=== PATIENT | male | born 1995 | race Caucasian/White ===

== ENCOUNTER 2016-04-19 17:46 | Inpatient (IN) | payer MEDICAID, MEDICARE ==
[~2016-04-19] VITALS: Ht 193 cm; Wt 144.0 kg
[2016-04-19] VITALS (10 sets, daily range): BP systolic 101–118; BP diastolic 67–83; PULSE 122–134; RESP 24–28; TEMP 97.7–98.7; O2SAT 93–97
[~2016-04-19 17:46] MED LIST: ALBU0.08 NEB; ALBUAER3 INH; FLUTI44I INH; IPRA0.02 NEB; NEBUMIS6 INH; PRED20 PO; PULM90IN INH
[2016-04-19] MEDS ORDERED: SODIUM CHLORIDE 0.9% FLUSH 5 ML FLUSH IVF PRN (18:00)
[2016-04-19] MEDS ORDERED: methylPREDNISolone SOD SUCC 125 MG/2 ML VIAL IVP ONE (18:00)
[2016-04-19] MEDS: RESP: ALBUTEROL 2.5 MG/IPRATROPIUM 0.5 MG NEB (SCH) INH (18:06)
--- NOTE | 2016-04-19 18:07 | PD ---
HPI Chief Complaint: Respiratory Distress Time Seen by Provider: 17:54 Travel History International Travel<30 days: No Contact w/Intl Traveler<30days: No Traveled to known affect area: No History of Present Illness HPI This patient complains of shortness of breath. He has history of asthma and started wheezing this morning. He has run out of his albuterol nebulizer medication. He does not smoke. He's got a bit of runny nose and congestion but no fever or chest pain. Symptoms are severe upon presentation. He is laboring to breathe. Duration is one day. No alleviating factors. PFSH Past Medical History ADHD: No Anemia: Yes Arthritis: Yes Asthma: Yes Autoimmune Disease: No Anxiety: No Depression: Yes Cancer: No Cardiovascular Problems: Yes (PER MOM HAD HEART MURMUR WHILE IN HOSPITAL LAST YEAR) Diabetes: No Diminished Hearing: No Gastrointestinal Disorders: Yes Psychiatric: Yes (HX ASPERGERS, MOOD DISORDER) Respiratory: Yes (asthma) Immunizations Current: Yes (SCHOOL SHOTS UTD) Migraines: No Seizures: No Thyroid Disease: No Ulcer: No Past Surgical History Appendectomy: No Cholecystectomy: No Oral Surgery: Yes (T & A 2002) Tonsillectomy: Yes (ADNOIDS) Other Surgery: Yes (tonsillectomy and adenoidectomy age 7) Social History Alcohol Use: No Tobacco Use: No Substance Use: No Allergies-Medications (Allergen,Severity, Reaction): Coded Allergies: Cat Dander (Verified Allergy, Mild, 02/28/16) Smoke (Verified Allergy, Mild, 02/28/16) Reported Meds & Prescriptions Reported Meds & Active Scripts Active Ipratropium Neb (Ipratropium [place]) 0.5 Mg/2.5 Ml Amp 0.5 Mg NEB Q6HR NEB PRN Albuterol Neb (Albuterol Sulfate) 2.5 Mg/3 Ml Neb 2.5 Mg NEB Q4HR NEB PRN Proair Hfa 8.5 GM Inh (Albuterol Sulfate) 90 Mcg/Act Aer 1 Puff INH Q4H PRN 108 mcg/actuation Pulmicort Flexhaler (Budesonide Powder Inh) 90 Mcg/Act Inhp 90 Mcg INH Q12HR Review of Systems General / Constitutional: No: Fever Eyes: No: Visual changes HENT: Positive: Rhinorrhea, Congestion, No: Headaches Cardiovascular: Positive: Tachycardia, No: Chest Pain or Discomfort Respiratory: Positive: Cough, Shortness of Breath, Wheezing Gastrointestinal: No: Abdominal Pain Genitourinary: No: Dysuria Musculoskeletal: No: Pain Skin: No Rash Neurologic: No: Weakness Psychiatric: No: Depression Endocrine: No: Polydipsia Hematologic/Lymphatic: No: Easy Bruising Physical Exam Narrative GENERAL: Well-nourished, well-developed patient in respiratory distress. SKIN: Warm and dry. HEAD: Atraumatic. Normocephalic. EYES: Pupils equal and round. No scleral icterus. No injection or drainage. ENT: No nasal bleeding or discharge. Mucous membranes pink and moist. NECK: Trachea midline. No JVD. CARDIOVASCULAR: Regular rate and rhythm. No murmur appreciated. Tachycardic at 130s RESPIRATORY: Positive accessory muscle use. Diffuse expiratory wheezing. Breath sounds equal bilaterally. GASTROINTESTINAL: Abdomen soft, non-tender, nondistended. Hepatic and splenic margins not palpable. MUSCULOSKELETAL: No obvious deformities. No clubbing. No cyanosis. No edema. NEUROLOGICAL: Awake and alert. No obvious cranial nerve deficits. Motor grossly within normal limits. Normal speech. PSYCHIATRIC: Appropriate mood and affect; insight and judgment normal. Data Data Last Documented VS Vital Signs Date Time Temp Pulse Resp B/P Pulse Ox O2 Delivery O2 Flow Rate FiO2 04/19/16 19:50 93 04/19/16 19:45 98.5 134 24 101/82 Room Air Orders Chest, Single Ap (04/19/16 17:58) Ecg Monitoring (04/19/16 17:58) Iv Access Insert/Monitor (04/19/16 17:58) Oximetry (04/19/16 17:58) Oxygen Administration (04/19/16 17:58) Methylprednisolone So Succ Inj (Solumedr (04/19/16 18:00) Albuterol-Ipratropium Neb (Duoneb Neb) (04/19/16 18:00) Sodium Chloride 0.9% Flush (Ns Flush) (04/19/16 18:00) Complete Blood Count With Diff (04/19/16 18:02) Basic Metabolic Panel (Bmp) (04/19/16 18:02) Albuterol-Ipratropium Neb (Duoneb Neb) (04/19/16 19:00) Admit Order (Ed Use Only) (04/19/16 19:50) Labs Laboratory Tests Test 04/19/16 17:50 White Blood Count 14.9 TH/MM3 Red Blood Count 5.37 MIL/MM3 Hemoglobin 14.2 GM/DL Hematocrit 42.5 % Mean Corpuscular Volume 79.3 FL Mean Corpuscular Hemoglobin 26.5 PG Mean Corpuscular Hemoglobin 33.4 % Concent Red Cell Distribution Width 14.2 % Platelet Count 312 TH/MM3 Mean Platelet Volume 9.9 FL Neutrophils (%) (Auto) 78.9 % Lymphocytes (%) (Auto) 10.6 % Monocytes (%) (Auto) 5.3 % Eosinophils (%) (Auto) 4.4 % Basophils (%) (Auto) 0.8 % Neutrophils # (Auto) 11.7 TH/MM3 Lymphocytes # (Auto) 1.6 TH/MM3 Monocytes # (Auto) 0.8 TH/MM3 Eosinophils # (Auto) 0.7 TH/MM3 Basophils # (Auto) 0.1 TH/MM3 CBC Comment DIFF FINAL Differential Comment Sodium Level 140 MEQ/L Potassium Level 4.2 MEQ/L Chloride Level 106 MEQ/L Carbon Dioxide Level 26.7 MEQ/L Anion Gap 7 MEQ/L Blood Urea Nitrogen 9 MG/DL Creatinine 1.00 MG/DL Estimat Glomerular Filtration 96 ML/MIN Rate Random Glucose 86 MG/DL Calcium Level 8.8 MG/DL MDM Medical Decision Making Medical Screen Exam Complete: Yes Emergency Medical Condition: Yes Medical Record Reviewed: Yes Differential Diagnosis Asthma exacerbation, pneumonia, pneumothorax Narrative Course I have reviewed the patient's electronic medical record. Patient has been here multiple times for asthma exacerbations over the last 5 years He arrives critically ill. He is laboring to breathe and actively wheezing and has room air saturations of 90% and a heart rate of 130 IV placed I gave him a series of 3 nebulizer treatments and IV Solu-Medrol I placed him on oxygen monitoring Extended cardiac monitoring reveals sinus tachycardia in the 130s I reviewed his chest x-ray which shows some atelectasis but no other findings CBC is normal Metabolic profile is normal I gave him a fourth albuterol nebulizer when he was still wheezing and short of breath After that he is still wheezing and dyspneic. He has sinus tachycardia of 130s still which of course the albuterol could exaggerate He seems improved and no longer critically ill but will require observation in the hospital for continued care. Saturations are mid 90s on room air, improved from 90% Call placed to hospitalist to discuss Critical Care Narrative Aggregate critical care time was 34 minutes. Time to perform other separately billable procedures was not included in the critical care time. My time did not include minutes spent treating any other patients simultaneously or on activities that did not directly contribute to the patient's treatment. The services I provided to this patient were to treat and/or prevent clinically significant deterioration that could result in: Respiratory failure, cardiopulmonary arrest, hypoxic brain injury I provided critical care services requiring my management, as noted below: Chart data review, documentation time, medication orders and management, vital sign assessments/reviewing monitor data, ordering and reviewing lab tests, ordering and interpreting/reviewing x-rays and diagnostic studies, care of the patient and discussion of the patient with the admitting physicians. Diagnosis Primary Impression: Asthma exacerbation Admitting Information Admitting Physician Requests: Observation Stanley Maza MD Apr 19, 2016 18:07
[2016-04-19 18:19] LABS: AUTOMATED NEUTROPHIL # 11.7 TH/MM3 (1.8-7.7); BASOPHIL # 0.1 TH/MM3 (0-0.2); BASOPHIL % 0.8 % (0.0-2.0); EOSINOPHIL # 0.7 TH/MM3 (0-0.4); EOSINOPHIL % 4.4 % (0.0-4.0); HEMATOCRIT 42.5 % (39.0-51.0); HEMO FLAGS DIFF FINAL; LYMPH % 10.6 % (9.0-44.0); LYMPHOCYTE # 1.6 TH/MM3 (1.0-4.8); MEAN CELL VOLUME 79.3 FL (80.0-100.0); MEAN CORPUSCULAR HEMOGLOBIN 26.5 PG (27.0-34.0); MEAN CORPUSCULAR HGB CONC 33.4 % (32.0-36.0); MONO % 5.3 % (0.0-8.0); NEUT % 78.9 % (16.0-70.0); PLATELET COUNT 312 TH/MM3 (150-450); RED BLOOD COUNT 5.37 MIL/MM3 (4.50-5.90); RED CELL DISTRIBUTION WIDTH 14.2 % (11.6-17.2); WHITE BLOOD COUNT 14.9 TH/MM3 (4.0-11.0)
[2016-04-19 18:26] LABS: POTASSIUM 4.2 MEQ/L (3.5-5.1)
[2016-04-19 18:29] LABS: BICARBONATE 26.7 MEQ/L (21.0-32.0)
--- NOTE | 2016-04-19 18:48 | RADHPO ---
EXAM DATE/TIME: 04/19/2016 18:09 [facility] COMPARISON: CHEST SINGLE AP, September 27, 2013, 18:21. INDICATIONS : Short of breath. MEDICAL HISTORY : Asthma SURGICAL HISTORY : None. ENCOUNTER: Initial ACUITY: 1 day PAIN SCORE: 2/10 LOCATION: Bilateral chest FINDINGS: There is basilar and dependent opacity most characteristic of atelectasis. Findings similar to September 13 014. Heart size normal. No effusion. No pneumothorax. CONCLUSION: 1. Basilar and dependent atelectasis. No effusion or pneumothorax. Anibal Najera MD on April 19, 2016 at 18:45 Board Certified Radiologist. This report was verified electronically.
[2016-04-19] MEDS ORDERED: RESP: ALBUTEROL 2.5 MG/IPRATROPIUM 0.5 MG NEB (SCH) NEB ONE (19:00)
[2016-04-19] MEDS ORDERED: SODIUM CHLORIDE 0.9% FLUSH 5 ML FLUSH FLUSH PRN (20:00)
[2016-04-19] MEDS ORDERED: SODIUM CHLOR 0.9% 1000 ML INJ 1,000 ML IV ONE (20:00)
[2016-04-19] MEDS ORDERED: ACETAMINOPHEN 325 MG TAB PO PRN (20:00)
[2016-04-19] MEDS ORDERED: RESP: ALBUTEROL 2.5 MG/3 ML NEB (PRN) NEB (20:00)
[2016-04-19] MEDS ORDERED: BISACODYL 10 MG SUPP PR PRN (20:00)
[2016-04-19] MEDS ORDERED: RESP: ALBUTEROL 2.5 MG/3 ML NEB (SCH) NEB (20:00)
[2016-04-19] MEDS ORDERED: ONDANSETRON HCL 4 MG/2 ML VIAL IVP PRN (20:00)
[2016-04-19] MEDS: SODIUM CHLORIDE 0.9% FLUSH 5 ML FLUSH FLUSH SCH (21:36)
[2016-04-19] MEDS: BUDESONIDE-FORMOTEROL 160/4.5 MCG INHALER INH SCH (21:57)
[2016-04-20] VITALS (11 sets, daily range): BP systolic 97–124; BP diastolic 58–74; PULSE 80–123; RESP 17–24; TEMP 95.9–98.1; O2SAT 92–98
[2016-04-20] MEDS: RESP: ALBUTEROL 2.5 MG/IPRATROPIUM 0.5 MG NEB (PRN) NEB ×2 (00:31→05:38)
[2016-04-20] MEDS: methylPREDNISolone SOD SUCC 40 MG/1 ML VIAL IV PUSH SCH ×5 (00:35→23:51)
[2016-04-20 06:29] LABS: AUTOMATED NEUTROPHIL # 6.5 TH/MM3 (1.8-7.7); BASOPHIL # 0.1 TH/MM3 (0-0.2); BASOPHIL % 0.9 % (0.0-2.0); EOSINOPHIL % 0.2 % (0.0-4.0); HEMATOCRIT 39.2 % (39.0-51.0); HEMO FLAGS DIFF FINAL; LYMPH % 9.2 % (9.0-44.0); LYMPHOCYTE # 0.7 TH/MM3 (1.0-4.8); MEAN CELL VOLUME 79.8 FL (80.0-100.0); MEAN CORPUSCULAR HEMOGLOBIN 26.3 PG (27.0-34.0); MEAN CORPUSCULAR HGB CONC 32.9 % (32.0-36.0); MONO % 0.8 % (0.0-8.0); NEUT % 88.9 % (16.0-70.0); PLATELET COUNT 281 TH/MM3 (150-450); RED BLOOD COUNT 4.91 MIL/MM3 (4.50-5.90); RED CELL DISTRIBUTION WIDTH 14.1 % (11.6-17.2); WHITE BLOOD COUNT 7.4 TH/MM3 (4.0-11.0)
[2016-04-20 06:30] LABS: CHLORIDE 107 MEQ/L (98-107); POTASSIUM 4.4 MEQ/L (3.5-5.1); SODIUM (NA) 140 MEQ/L (136-145)
[2016-04-20 06:35] LABS: ANION GAP 9 MEQ/L (5-15); BICARBONATE 23.6 MEQ/L (21.0-32.0)
[2016-04-20 06:36] LABS: BLOOD UREA NITROGEN 13 MG/DL (7-18)
[2016-04-20 06:39] LABS: ALT (GPT) 45 U/L (9-52); AST (GOT) 18 U/L (15-39); GLOMERULAR FILTRATION RATE 96 ML/MIN (>89)
[2016-04-20 06:40] LABS: TOTAL BILIRUBIN ADULT 0.6 MG/DL (0.2-1.0)
[2016-04-20 06:41] LABS: ALKALINE PHOSPHATASE 73 U/L (45-117)
[2016-04-20] MEDS: RESP: ALBUTEROL 2.5 MG/IPRATROPIUM 0.5 MG NEB (SCH) NEB ×4 (07:27→20:00)
--- NOTE | 2016-04-20 07:49 | HHI.HP ---
[facility] Service [facility] Primary Care Physician Non-Staff Admission Diagnosis acute asthma exac Diagnoses: (1) Acute asthma Diagnosis: Principal (2) Hypoxia Diagnosis: Principal Chief Complaint: Shortness of breath, dyspnea Travel History International Travel<30 Days: No Contact w/Intl Traveler <30 Da: No Traveled to Known Affected Are: No History of Present Illness 20 year-old male with known history of asthma, Asperger's, mood disorder who presented to hospital because of shortness of breath and dyspnea. Patient does have history asthma and usually uses pro-air inhaler, nebulizer with albuterol, ipratropium, Flovent. Patient states that he has been out of his Flovent and pro-air for at least a week. He ran out of his nebulizer medication yesterday morning. Patient had continuous shortness of breath and dyspnea so he presented to the hospital for evaluation. [facility] patient had shortness of breath, he was given nebulizer treatments, Solu-Medrol with minimal improvement. Patient was placed on nasal cannula for O2 supplementation. ER documentation indicates that the patient had diffuse wheezing and use of a sensory muscles. Patient was still requiring oxygen to maintain oxygenation. Patient is requested observation in the hospital for further evaluation. Upon evaluating the patient this morning, patient appears be blunting on his inspiration. No wheeze was appreciated. However when patient off oxygen he had desaturations to 85%. Patient states that he would like to go home today, however I notified him that would have to continue with present treatment plan to see if his occupation improves prior to safe discharge. Patient denies any fever, chills, cough, congestion, chest pain. Review of Systems Constitutional: DENIES: Diaphoretic episodes, Fatigue, Fever, Weight gain, Weight loss, Chills, Dizziness, Change in appetite, Night Sweats Eyes: DENIES: Blurred vision, Diplopia, Eye inflammation, Eye pain, Vision loss , Double Vision Ears, nose, mouth, throat: DENIES: Vertigo, Nasal discharge, Throat pain, Ear Pain, Running Nose, Sinus Pain Respiratory: COMPLAINS OF: Shortness of breath, DENIES: Apneas, Cough, Snoring , Wheezing, Hemoptysis, Sputum production Cardiovascular: DENIES: Chest pain, Palpitations, Syncope, Dyspnea on Exertion , Lower Extremity Edema, Orthopnea Gastrointestinal: DENIES: Abdominal pain, Black stools, Bloody stools, Constipation, Diarrhea, Nausea, Vomiting, Difficulty Swallowing, Anorexia Neurologic: DENIES: Abnormal gait, Headache, Localized weakness, Paresthesias, Seizures, Speech Problems, Tremor, Poor Balance Past Family Social History Past Medical History Asthma Mood disorder Asperger's Past Surgical History Tonsillectomy Reported Medications Reported Meds & Active Scripts Active Ipratropium Neb (Ipratropium [place]) 0.5 Mg/2.5 Ml Amp 0.5 Mg NEB Q6HR NEB PRN Albuterol Neb (Albuterol Sulfate) 2.5 Mg/3 Ml Neb 2.5 Mg NEB Q4HR NEB PRN Proair Hfa 8.5 GM Inh (Albuterol Sulfate) 90 Mcg/Act Aer 1 Puff INH Q4H PRN 108 mcg/actuation Pulmicort Flexhaler (Budesonide Powder Inh) 90 Mcg/Act Inhp 90 Mcg INH Q12HR Allergies: Coded Allergies: Cat Dander (Verified Allergy, Mild, 02/28/16) Smoke (Verified Allergy, Mild, 02/28/16) Family History Reviewed and unremarkable Social History Patient denies any tobacco, alcohol or illicit drugs Physical Exam Vital Signs Vital Signs Date Time Temp Pulse Resp B/P Pulse Ox O2 Delivery O2 Flow Rate FiO2 04/20/16 07:28 92 Nasal Cannula 2.00 04/20/16 04:34 106 04/20/16 04:00 96.5 80 20 124/74 93 04/20/16 00:31 92 Nasal Cannula 2.00 04/20/16 00:00 97.7 123 24 98/63 93 04/19/16 22:00 96 Nasal Cannula 2.00 04/19/16 21:35 126 04/19/16 21:30 93 Nasal Cannula 2.00 04/19/16 21:30 97.7 126 26 117/67 93 04/19/16 21:15 118 22 110/78 96 2 04/19/16 20:39 122 26 118/83 96 Nasal Cannula 2 04/19/16 19:50 93 04/19/16 19:45 98.5 134 24 101/82 96 Room Air 2/5/17 19:19 Room Air 04/19/16 19:19 126 26 102/70 97 Room Air 04/19/16 18:04 96 Room Air 04/19/16 18:04 96 Room Air 04/19/16 17:58 128 28 96 Room Air 04/19/16 17:55 98.7 128 28 118/83 96 Physical Exam GENERAL: Well-developed, well-nourished, in no acute distress. alert and orientated HEENT: Head is normocephalic without any lesions or masses noted. Facial features are symmetric. Eyes: Pupils equal round reactive to light. Extraocular muscles are intact. Conjunctivae were clear. Oropharyngeal: Pharynx without any erythema edema. Tongue is midline without deviation. Buccal mucosa is moist without any masses or lesions NECK: Supple without any masses. Trachea midline no deviation. No JVD, no bruits are appreciated CARDIAC: Regular rhythm, regular rate. S1/S2 are heard. No murmurs gallops or rubs. LUNGS: Clear to auscultation bilaterally. No wheeze, rhonchi or rales. No use of accessory muscles on inspiration or expiration. Patient blunting his breathing on inspiration ABDOMEN: Soft, nontender. Nondistended. Bowel sounds heard in all 4 quadrants. No organomegaly or masses. Negative rebound, negative guarding EXTREMITIES: No edema, pulses are equal bilaterally. No cyanosis or clubbing NEUROLOGY: Mood and affect appear appropriate. Cranial nerves II through XII grossly intact. Muscle strength 5/5 in upper and lower extremities bilaterally. Deep tendon reflexes are 2+ in upper and lower extremities bilaterally. Laboratory Laboratory Tests Test 04/19/16 04/20/16 17:50 05:05 White Blood Count 14.9 7.4 Red Blood Count 5.37 4.91 Hemoglobin 14.2 12.9 Hematocrit 42.5 39.2 Mean Corpuscular Volume 79.3 79.8 Mean Corpuscular Hemoglobin 26.5 26.3 Mean Corpuscular Hemoglobin 33.4 32.9 Concent Red Cell Distribution Width 14.2 14.1 Platelet Count 312 281 Mean Platelet Volume 9.9 10.4 Neutrophils (%) (Auto) 78.9 88.9 Lymphocytes (%) (Auto) 10.6 9.2 Monocytes (%) (Auto) 5.3 0.8 Eosinophils (%) (Auto) 4.4 0.2 Basophils (%) (Auto) 0.8 0.9 Neutrophils # (Auto) 11.7 6.5 Lymphocytes # (Auto) 1.6 0.7 Monocytes # (Auto) 0.8 0.1 Eosinophils # (Auto) 0.7 0.0 Basophils # (Auto) 0.1 0.1 CBC Comment DIFF FINAL DIFF FINAL Differential Comment Sodium Level 140 140 Potassium Level 4.2 4.4 Chloride Level 106 107 Carbon Dioxide Level 26.7 23.6 Anion Gap 7 9 Blood Urea Nitrogen 9 13 Creatinine 1.00 1.00 Estimat Glomerular Filtration 96 96 Rate Random Glucose 86 149 Calcium Level 8.8 8.8 Total Bilirubin 0.6 Aspartate Amino Transf 18 (AST/SGOT) Alanine Aminotransferase 45 (ALT/SGPT) Alkaline Phosphatase 73 Total Protein 7.5 Albumin 3.8 Result Diagram: 04/20/16 0505 04/20/16 0505 Imaging Last Impressions Chest X-Ray 04/19/16 9888 Signed Impressions: Service Date/Time: Tuesday, April 19, 2016 18:09 - CONCLUSION: 1. Basilar and dependent atelectasis. No effusion or pneumothorax. Anibal Najera MD Assessment and Plan Assessment and Plan Acute asthma exacerbation with hypoxia Continue O2 supplementation maintain O2 sats greater than 92% Continue Solu-Medrol Continue nebulizer treatments Continue Symbicort Start incentive spirometry Patient is out of his medications at home, he does not have any refills. We' ll need to refill his prescriptions prior to discharge DVT prevention Sequential compression devices Written by Stanley Pelayo PA-C, acting as scribe for Dr. New on 04/20/16 at 1145. The documentation accurately reflects the work and decisions performed face-to- face by Dr. New on 04/20/16 at 1145. Stanley Pelayo Apr 20, 2016 07:49
[2016-04-20] MEDS: SODIUM CHLORIDE 0.9% FLUSH 5 ML FLUSH FLUSH SCH ×2 (09:00→21:35)
[2016-04-20] MEDS ORDERED: PNEUMOCOCCAL POLYVALENT INJ 25 MCG/0.5 ML SYR IM ONE (09:00)
[2016-04-20] MEDS: BUDESONIDE-FORMOTEROL 160/4.5 MCG INHALER INH SCH ×2 (09:00→21:35)
[2016-04-20] MEDS ORDERED: BUDESONIDE 90 MCG INH SCH (21:00)
[2016-04-21] VITALS: BP 106/55; PULSE 107; RESP 20; TEMP 97.4; O2SAT 95
[2016-04-21 04:00] VITALS: BP 104/56; PULSE 91; RESP 20; TEMP 96.3; O2SAT 97
[2016-04-21] MEDS: methylPREDNISolone SOD SUCC 40 MG/1 ML VIAL IV PUSH SCH ×2 (05:30→11:45)
[2016-04-21] MEDS: RESP: ALBUTEROL 2.5 MG/IPRATROPIUM 0.5 MG NEB (SCH) NEB ×2 (07:27→11:07)
[2016-04-21 07:29] VITALS: O2SAT 94
[2016-04-21] MEDS: BUDESONIDE-FORMOTEROL 160/4.5 MCG INHALER INH SCH (07:55)
[2016-04-21 08:05] VITALS: BP 106/63; PULSE 78; RESP 19; TEMP 96.7; O2SAT 94
[2016-04-21] MEDS: SODIUM CHLORIDE 0.9% FLUSH 5 ML FLUSH FLUSH SCH (11:45)
--- NOTE | 2016-04-21 12:34 | HHI.PR ---
Subjective Remarks The patient is doing well and feels back to his baseline. He is 98% on his oxygen walk test without oxygen. Objective Vitals Vital Signs Date Time Temp Pulse Resp B/P Pulse Ox O2 Delivery O2 Flow Rate FiO2 04/21/16 08:05 96.7 78 19 106/63 94 04/21/16 07:29 94 21 04/21/16 04:00 96.3 91 20 104/56 97 04/21/16 00:00 97.4 107 20 106/55 95 04/20/16 21:00 117 04/20/16 20:01 96 04/20/16 20:00 98.1 114 20 109/61 95 04/20/16 16:23 97.3 115 17 109/58 98 04/20/16 12:42 96.1 103 18 97/61 92 I/O 04/20/16 04/20/16 04/20/16 04/21/16 04/21/16 04/21/16 07:00 15:00 23:00 07:00 15:00 23:00 Intake Total 1220 ml Balance 1220 ml Intake Oral 240 ml IV Total 980 ml # Voids 1 2 1 1 Result Diagram: 04/20/16 0505 04/20/16 0505 Objective Remarks GENERAL: Well-nourished, well-developed pleasant obese young adult male. No apparent distress. SKIN: Warm and dry. HEAD: Normocephalic. EYES: No scleral icterus. No injection or drainage. NECK: Supple, trachea midline. No JVD or lymphadenopathy. CARDIOVASCULAR: Regular rate and rhythm without murmurs, gallops, or rubs. RESPIRATORY: Breath sounds equal and clear to auscultation bilaterally. No accessory muscle use. No wheezes Rales or rhonchi. GASTROINTESTINAL: Abdomen soft, non-tender, nondistended. EXTREMITIES: No cyanosis, or edema. NEUROLOGICAL: Awake, alert, and oriented x 3. Non-focal. A/P Problem List: (1) Acute asthma ICD Code: J45.909 Status: Acute (2) Hypoxia ICD Code: R09.02 Status: Acute Assessment and Plan -Asthma exacerbation. Improved. He states he's been having more frequent asthma exacerbations. He has mild hypoxia on admission which has now resolved. He'll be discharged home today with steroid taper. He is advised to follow- up with his primary care physician at the [facility] within one week. I will refill his inhalers. Leonora New MD Apr 21, 2016 12:34
[2016-04-21] MEDS ORDERED: PULM180I INH (12:36)
[2016-04-21] MEDS ORDERED: ALBUAER3 INH (12:36)
[2016-04-21] MEDS ORDERED: PRED20 PO (12:36)
[2016-04-21] MEDS ORDERED: IPRA0.02 NEB (12:36)
== END 2016-04-21 15:00 | disposition home or self-care (01) | DRG 202 ==
LOC: PHED 17:46 → PHEDA 19:51 → PH3A 21:03 → OBSVTOIN 04-20 12:38
PROVIDERS: ADMIT Family Medicine; ATTEND Family Medicine
PROC: 3E0F7GC Introduction of Other Therapeutic Substance into Respiratory Tract, Via Natural or Artificial Opening (ICD-10-PCS; principal; 2016-04-19)
DX: J45.901 Unspecified asthma with (acute) exacerbation (principal); F84.5 Asperger's syndrome; F39 Unspecified mood [affective] disorder; R09.02 Hypoxemia
CPT/HCPCS: 71010; 80048; 80053; 85025; 94150; 94620; 94640; 94664; 96374; G0378; J2920; J2930; J7030; J7613